=== PATIENT | female | born 1945 | race American Indian/Alaskan Native ===

== ENCOUNTER 2017-08-22 08:58 | Outpatient (CLI) | payer MEDICARE ==
--- NOTE | 2017-08-22 10:40 | Mammography Report ---
Bilateral digital screening mammogram with CAD. Comparison study is dated May 31, 2016. History: Breast cancer survivor with left partial mastectomy. Findings: The postsurgical changes in the left breast are stable with no evidence recurrent mass or worsening architectural distortion. There is residual left skin thickening is unchanged. A few benign calcifications are seen in the lateral left breast. The right breast demonstrate scattered parenchymal densities with stability of the overall pattern. Impression: Stable benign findings. BI-RADS code: 2. Recommendation: Annual screening.
== END 2017-08-22 08:59 | disposition home or self-care (01) ==
LOC: SPVWC 08:58
PROVIDERS: ATTEND Internal Medicine
DX: Z12.31 Encounter for screening mammogram for malignant neoplasm of breast (principal); Z90.12 Acquired absence of left breast and nipple
CPT/HCPCS: 77067; G0202

== ENCOUNTER 2018-11-06 14:28 | Outpatient (CLI) | payer MEDICARE ==
--- NOTE | 2018-11-06 16:25 | XRay Report ---
XRAY CERVICAL SPINE WITH OBLIQUES AND FLEXION-EXTENSION SEVEN VIEWS: 11/06/18 14:28:00 CLINICAL: Cervical disc disorder with myelopathy. FINDINGS: Normal vertebral body height and alignment through T1. Normal alignment in flexion and extension. Moderate disc space narrowing at C5-6 and C6-7 with moderate size anterior osteophytes. The rest of the disc spaces are normal. Moderate facet joint disease with sclerosis and narrowing of the facet joints from C2-3 through C5-6. Oblique views suggest moderate multilevel neural foraminal stenosis. No fracture or subluxation. Surgical clips in the left neck are related to a left thyroidectomy. IMPRESSION: 1. Moderate degenerative disease at C5-6 and C6-7. 2. Moderate facet joint disease from C2-3 through C5-6. 3. Moderate multilevel bilateral neural foraminal stenosis. 4. No instability in flexion and extension.
== END 2018-11-06 14:29 | disposition home or self-care (01) ==
LOC: SPVIMAG 14:28
PROVIDERS: ATTEND Internal Medicine
DX: M50.322 Other cervical disc degeneration at C5-C6 level (principal); M48.02 Spinal stenosis, cervical region; I10 Essential (primary) hypertension; E78.00 Pure hypercholesterolemia, unspecified; E03.9 Hypothyroidism, unspecified; E11.43 Type 2 diabetes mellitus with diabetic autonomic (poly)neuropathy; K21.9 Gastro-esophageal reflux disease without esophagitis; M19.90 Unspecified osteoarthritis, unspecified site; E66.9 Obesity, unspecified; Z90.49 Acquired absence of other specified parts of digestive tract; Z87.891 Personal history of nicotine dependence; Z90.12 Acquired absence of left breast and nipple; Z90.710 Acquired absence of both cervix and uterus; Z90.721 Acquired absence of ovaries, unilateral
CPT/HCPCS: 72052

== ENCOUNTER 2021-08-08 16:41 | Emergency (ER) | payer MEDICARE | END 2021-08-09 04:36 | LOC: ED 16:41 | DX: T15.90XA Foreign body on external eye, part unspecified, unspecified eye, initial encounter (principal); Z53.21 Procedure and treatment not carried out due to patient leaving prior to being seen by health care provider; X58.XXXA Exposure to other specified factors, initial encounter; Y93.89 Activity, other specified; Y92.89 Other specified places as the place of occurrence of the external cause; Y99.8 Other external cause status ==